=== PATIENT | female | born 1955 | race Caucasian/White ===

== ENCOUNTER → 2017-08-26 | Outpatient (CLI) | payer OTHER | END | disposition home or self-care (01) | LOC: MAMMO 08:51 | DX: Z12.31 Encounter for screening mammogram for malignant neoplasm of breast (principal) | CPT/HCPCS: 77063; 77067 ==

== ENCOUNTER 2017-11-26 10:50 | Emergency (ER) | payer OTHER ==
[2017-11-26 11:28] LABS: ADD MAN DIFF? NO
[2017-11-26 11:36] LABS: BASO % 0 % (0-3); EOS # 0.1 x10^3/uL (0.0-0.7); EOS % 0 % (0-3); HEMATOCRIT 45.8 % (36.0-47.0); HEMOGLOBIN 15.9 g/dL (12.0-15.5); LYMPH # 2.9 x10^3/uL (1.0-4.8); LYMPH % 23 % (24-48); MEAN CORPUSCULAR HEMOGLOBIN 29 pg (25-35); MEAN CORPUSCULAR HGB CONC 35 g/dL (31-37); MEAN CORPUSCULAR VOLUME 84 fL (79-100); MONO # 0.9 x10^3/uL (0.0-1.1); MONO % 7 % (0-9); NEUT # 9.2 x10^3uL (1.8-7.7); NEUT % 70 % (31-73); PLATELET COUNT 294 x10^3/uL (140-400); RED BLOOD COUNT 5.48 x10^6/uL (3.50-5.40); RED CELL DISTRIBUTION WIDTH 13.7 % (11.5-14.5); WHITE BLOOD COUNT 13.1 x10^3/uL (4.0-11.0)
[2017-11-26 11:43] LABS: ANION GAP 11 (6-14); BLOOD UREA NITROGEN 24 mg/dL (7-20); BUN/CREATININE RATIO 22 (6-20); CALCIUM 9.8 mg/dL (8.5-10.1); CARBON DIOXIDE 25 mmol/L (21-32); CHLORIDE 103 mmol/L (98-107); CREATININE 1.1 mg/dL (0.6-1.0); GFR 50.5; GLUCOSE 127 mg/dL (70-99); POTASSIUM 3.6 mmol/L (3.5-5.1); SODIUM 139 mmol/L (136-145)
[2017-11-26 11:46] LABS: BACTERIA,URINE 0 /HPF (0-FEW); BILIRUBIN,URINE NEGATIVE (NEG); CLARITY,URINE CLEAR; COLOR,URINE YELLOW; GLUCOSE,URINE NEGATIVE (NEG); NITRITE,URINE NEGATIVE (NEG); PH,URINE 5.5; PROTEIN,URINE NEGATIVE (NEG-TRACE); RBC,URINE 0 /HPF (0-2); SQUAMOUS EPITHELIAL CELL,UR FEW /LPF; WBC,URINE 0 /HPF (0-4)
[2017-11-26 11:48] LABS: ALBUMIN 4.4 g/dL (3.4-5.0); ALBUMIN/GLOBULIN RATIO 1.1 (1.0-1.7); ALK PHOS 86 U/L (46-116); ALT (SGPT) 34 U/L (14-59); AST (SGOT) 18 U/L (15-37); CREATINE KINASE 57 U/L (26-192); TOTAL BILIRUBIN 0.7 mg/dL (0.2-1.0); TOTAL PROTEIN 8.4 g/dL (6.4-8.2)
[2017-11-26 11:50] LABS: TROPONINI < 0.017 ng/mL (0.000-0.055)
[2017-11-26 11:55] LABS: CKMB MASS 0.6 ng/mL (0.0-3.6); CREATINE KINASE 60 U/L (26-192)
[2017-11-26 11:56] LABS: PARTIAL THROMBOPLASTIN TIME 25 SEC (24-38); PROTHROMBIN TIME PATIENT 12.3 SEC (11.7-14.0)
[2017-11-26] MEDS: GADOBUTROL 7.5 MMOL/7.5 ML VIAL IV (13:38)
== END 2017-11-26 16:39 | disposition home or self-care (01) ==
LOC: ER 10:50
DX: R20.2 Paresthesia of skin (principal); R94.4 Abnormal results of kidney function studies; I10 Essential (primary) hypertension; M06.9 Rheumatoid arthritis, unspecified; R11.0 Nausea
CPT/HCPCS: 36415; 70450; 70553; 71046; 72156; 80053; 81001; 82550; 82553; 83735; 84484; 85025; 85610; 85730; 93005; 96374; 99285; A9585

== ENCOUNTER → 2017-12-04 | Outpatient (CLI) | payer OTHER ==
[2017-12-04 15:54] LABS: BARBITURATES NEG (NEG); BENZODIAZEPINES NEG (NEG); CANNABINOIDS NEG (NEG); COCAINE NEG (NEG); METHADONE NEG (NEG); OPIATES NEG (NEG); PHENCYCLIDINE NEG (NEG)
[2017-12-04 15:55] LABS: AMPHETAMINE/METHAMPHETAMINE NEG (NEG); ETHANOL, URINE NEG (NEG)
[2017-12-04 16:00] LABS: GLUCOSE 109 mg/dL (70-99)
[2017-12-04 16:00] LABS: BLOOD UREA NITROGEN 16 mg/dL (7-20); GFR 56.4
[2017-12-04 16:13] LABS: VITAMIN-B12 327 pg/mL (247-911)
[2017-12-04 16:15] LABS: THYROID STIM HORMONE (TSH) 2.783 uIU/mL (0.358-3.74)
[2017-12-04 16:15] LABS: FREE T4 1.06 ng/dL (0.76-1.46)
[2017-12-04 17:00] LABS: SEDIMENTATION RATE 6 (0-25)
[2017-12-05 03:18] LABS: RHEUMATOID FACTOR <10.0 IU/mL (0.0-13.9)
== END | disposition home or self-care (01) ==
LOC: LAB 15:05
DX: R20.0 Anesthesia of skin (principal)
CPT/HCPCS: 36415; 80307; 82306; 82565; 82607; 82947; 84439; 84443; 84520; 85651; 86038; 86141; 86431

== ENCOUNTER 2017-12-09 13:27 | Outpatient (CLI) | payer OTHER ==
[2017-12-09] MEDS: LIDOCAINE WITH 8.4% SOD BICARB 3 ML DISP.SYRIN. INJ (14:50)
[2017-12-09 16:58] LABS: CSF PROTEIN 93.2 mg/dL (15.0-45.0)
[2017-12-09 16:58] LABS: CSF GLUCOSE 53 mg/dL (37-70)
[2017-12-09 18:20] LABS: CSF CLARITY CLEAR; CSF COLOR COLORLESS; CSF RBC COUNT 0; CSF WBC COUNT 1
[2017-12-12 13:24] LABS: WEST NILE IGG CSF Negative (Negative); WEST NILE IGM CSF Negative (Negative)
[2017-12-12 20:15] LABS: HERPES SIMPLEX TYPE 1 Negative (Negative); HERPES SIMPLEX TYPE 2 Negative (Negative)
[2017-12-17 11:26] LABS: MYELIN BASIC PROTEIN 3.1 ng/mL (0.0-1.2)
[2017-12-19 09:24] LABS: VIRAL CULT FINAL No virus isolated. (.)
== END 2017-12-09 17:15 | disposition home or self-care (01) ==
LOC: RAD 13:27
DX: R20.2 Paresthesia of skin (principal); R20.0 Anesthesia of skin; I10 Essential (primary) hypertension; M06.9 Rheumatoid arthritis, unspecified
CPT/HCPCS: 62270; 82945; 83873; 84157; 86788; 86789; 87071; 87075; 87102; 87205; 87252; 87529; 89051

== ENCOUNTER → 2017-12-15 | Outpatient (CLI) | payer OTHER ==
[2017-12-15 12:31] LABS: BLOOD UREA NITROGEN 11 mg/dL (7-20)
[2017-12-15 12:31] LABS: GFR 56.4
== END | disposition home or self-care (01) ==
LOC: LAB 11:42
DX: R13.12 Dysphagia, oropharyngeal phase (principal); R20.0 Anesthesia of skin
CPT/HCPCS: 82565; 84520

== ENCOUNTER → 2017-12-17 | Outpatient (CLI) | payer OTHER ==
[2017-12-17] MEDS: GADOBUTROL 10 MMOL/10 ML VIAL IV (10:02)
== END | disposition home or self-care (01) ==
LOC: MRI 08:30
DX: M48.061 Spinal stenosis, lumbar region without neurogenic claudication (principal); M12.88 Other specific arthropathies, not elsewhere classified, other specified site; M51.26 Other intervertebral disc displacement, lumbar region; G61.0 Guillain-Barre syndrome
CPT/HCPCS: 72157; 72158; A9585

== ENCOUNTER → 2017-12-18 | Outpatient (CLI) | payer OTHER ==
[2017-12-19 03:15] LABS: C3 COMPLEMENT 147 mg/dL (82-167)
[2017-12-19 03:15] LABS: C4 COMPLEMENT 17 mg/dL (14-44)
[2017-12-22 10:15] LABS: RNP ANTIBODY 0.8 AI (0.0-0.9); SMITH AB <0.2 AI (0.0-0.9); SSA ANTIBODY <0.2 AI (0.0-0.9); SSB ANTIBODY <0.2 AI (0.0-0.9)
== END | disposition home or self-care (01) ==
LOC: LAB 13:36
DX: R76.8 Other specified abnormal immunological findings in serum (principal)
CPT/HCPCS: 36415; 86160; 86235

== ENCOUNTER → 2018-02-06 | Outpatient (CLI) | payer OTHER ==
[2018-02-06 12:17] LABS: ALBUMIN 4.2 g/dL (3.4-5.0); ALBUMIN/GLOBULIN RATIO 1.2 (1.0-1.7); ALK PHOS 83 U/L (46-116); ALT (SGPT) 30 U/L (14-59); ANION GAP 9 (6-14); AST (SGOT) 17 U/L (15-37); BLOOD UREA NITROGEN 15 mg/dL (7-20); BUN/CREATININE RATIO 15 (6-20); CALCIUM 9.6 mg/dL (8.5-10.1); CARBON DIOXIDE 27 mmol/L (21-32); CHLORIDE 105 mmol/L (98-107); CHOLESTEROL 163 mg/dL (0-200); CHOLESTEROL/HDL RATIO 2.7; GFR 56.4; GLUCOSE 93 mg/dL (70-99); HDLC 61 mg/dL (40-60); LDLC 89 mg/dL (0-100); NON-HDL CHOLESTEROL 102 mg/dL (0-129); POTASSIUM 4.1 mmol/L (3.5-5.1); SODIUM 141 mmol/L (136-145); TOTAL BILIRUBIN 0.4 mg/dL (0.2-1.0); TOTAL PROTEIN 7.7 g/dL (6.4-8.2); TRIGLYCERIDES 66 mg/dL (0-150); VLDLC 13 mg/dL (0-40)
== END | disposition home or self-care (01) ==
LOC: LAB 11:29
DX: Z01.411 Encounter for gynecological examination (general) (routine) with abnormal findings (principal); E55.9 Vitamin D deficiency, unspecified; I10 Essential (primary) hypertension
CPT/HCPCS: 36415; 80053; 80061

== ENCOUNTER → 2018-02-06 | Outpatient (CLI) | payer OTHER ==
[2018-02-06 11:44] LABS: ADD MAN DIFF? NO
[2018-02-06 11:59] LABS: BASO % 0 % (0-3); EOS # 0.1 x10^3/uL (0.0-0.7); EOS % 1 % (0-3); HEMATOCRIT 41.3 % (36.0-47.0); HEMOGLOBIN 14.2 g/dL (12.0-15.5); LYMPH # 2.2 x10^3/uL (1.0-4.8); LYMPH % 29 % (24-48); MEAN CORPUSCULAR HEMOGLOBIN 29 pg (25-35); MEAN CORPUSCULAR HGB CONC 34 g/dL (31-37); MEAN CORPUSCULAR VOLUME 85 fL (79-100); MONO # 0.4 x10^3/uL (0.0-1.1); MONO % 6 % (0-9); NEUT # 4.9 x10^3uL (1.8-7.7); NEUT % 64 % (31-73); PLATELET COUNT 248 x10^3/uL (140-400); RED BLOOD COUNT 4.87 x10^6/uL (3.50-5.40); RED CELL DISTRIBUTION WIDTH 13.3 % (11.5-14.5); WHITE BLOOD COUNT 7.6 x10^3/uL (4.0-11.0)
[2018-02-06 12:14] LABS: CREATINE KINASE 54 U/L (26-192)
[2018-02-06 19:20] LABS: RHEUMATOID FACTOR <10.0 IU/mL (0.0-13.9)
== END | disposition home or self-care (01) ==
LOC: LAB 11:22
DX: E55.9 Vitamin D deficiency, unspecified (principal); M06.031 Rheumatoid arthritis without rheumatoid factor, right wrist; M06.032 Rheumatoid arthritis without rheumatoid factor, left wrist; I10 Essential (primary) hypertension
CPT/HCPCS: 36415; 82306; 82550; 85025; 86431

== ENCOUNTER → 2018-08-26 | Outpatient (CLI) | payer OTHER ==
[2017-12-09 17:15] VITALS: BP 140/73
[2018-08-26 06:57] LABS: ALBUMIN 3.9 g/dL (3.4-5.0); C-REACTIVE PROTEIN 12.7 mg/L (0-3.3); CALCIUM 9.3 mg/dL (8.5-10.1); CREATININE 1.1 mg/dL (0.6-1.0); GFR 50.3; POTASSIUM 3.8 mmol/L (3.5-5.1); TOTAL BILIRUBIN 0.5 mg/dL (0.2-1.0); TOTAL PROTEIN 7.8 g/dL (6.4-8.2)
== END | disposition home or self-care (01) ==
LOC: LAB 06:18
PROVIDERS: ATTEND Psychiatry & Neurology Neurology
DX: R20.0 Anesthesia of skin (principal)
CPT/HCPCS: 36415; 80053; 84591; 86140

== ENCOUNTER → 2018-10-29 | Outpatient (CLI) | payer OTHER ==
[2017-12-09 17:15] VITALS: BP 140/73
--- NOTE | 2018-10-29 14:25 | RAD ---
DATE: 10/29/2018 EXAM: MAMMO MARBELLA SCREENING BILATERAL HISTORY: Routine screening COMPARISON: 08/26/2017 This study was interpreted with the benefit of Computerized Aided Detection (CAD). Breast Density: SCATTERED The breast parenchyma shows scattered fibroglandular densities. Breast parenchyma level B. FINDINGS: 2-D and 3-D tomosynthesis imaging was performed in CC and MLO projections. No new or enlarging breast densities are seen. Benign type calcification is present. No suspicious microcalcifications have developed. IMPRESSION: Stable mammograms without evidence of malignancy. BI-RADS CATEGORY: 2 BENIGN FINDING(S) RECOMMENDED FOLLOW-UP: 12M 12 MONTH FOLLOW-UP PQRS compliance statement: Patient information was entered into a reminder system with a target due date for the next mammogram. Mammography is a sensitive method for finding small breast cancers, but it does not detect them all and is not a substitute for careful clinical examination. A negative mammogram does not negate a clinically suspicious finding and should not result in delay in biopsying a clinically suspicious abnormality. "Our facility is accredited by the [employer] Mammography Program."
== END | disposition home or self-care (01) ==
LOC: MAMMO 12:10
PROVIDERS: ATTEND Family Medicine
DX: Z12.31 Encounter for screening mammogram for malignant neoplasm of breast (principal)
CPT/HCPCS: 77063; 77067

== ENCOUNTER → 2018-12-14 | Outpatient (CLI) | payer OTHER ==
[2017-12-09 17:15] VITALS: BP 140/73
[2018-12-17 19:15] LABS: ANA INTERP Positive (.)
== END | disposition home or self-care (01) ==
LOC: LAB 15:34
PROVIDERS: ATTEND Psychiatry & Neurology Neurology
DX: R20.0 Anesthesia of skin (principal)
CPT/HCPCS: 36415; 86038

== ENCOUNTER → 2020-08-31 | Outpatient (CLI) | payer OTHER ==
[2017-12-09 17:15] VITALS: BP 140/73
== END ==
LOC: LAB 11:46
PROVIDERS: ATTEND Internal Medicine Pulmonary Disease
DX: U07.1 COVID-19 (principal)
CPT/HCPCS: U0003

== ENCOUNTER 2020-09-05 19:11 | Emergency (ER) | payer OTHER ==
[~2020-09-05] VITALS: Ht 167.6 cm; Wt 85.0 kg
--- NOTE | 2020-09-05 19:48 | PHYS DOC ---
Past Medical History Past Medical History: Hypertension, Other Additional Past Medical Histor: RA Past Surgical History: Other Additional Past Surgical Histo: d&c Smoking Status: Never Smoker Alcohol Use: Occasionally Drug Use: None General Adult EDM: Chief Complaint: NAUSEA/VOMITING/DIARRHA HPI: HPI: 65-year-old female with significant history of HTN, RA, who presents for evaluation of intractable nausea and fatigue in the setting of recent positive COVID-19 test 5 days ago. Has been symptomatic for 7 days. She reports objective fevers, chills, fatigue, and intractable nausea without abdominal pain. No other GI or complaints. No chest pain or dyspnea. No aggravating or alleviating factors. Review of Systems: Review of Systems: Gen: Reports subjective fever, chills, fatigue. Eyes: No blurred vision, diplopia. ENT: No nasal congestion, sore throat. CV: No CP, palpitations. Resp. No SOB, cough. GI: No abd pain. Reports N/V. : No dysuria, hematuria. Neuro: No BANERJEE, dizziness. Reports mild generalized weakness. MSK: No myalgia, arthralgia, back pain. Skin: No acute rash or lesion. Remainder of systems reviewed and negative unless otherwise specified. Heart Score: Risk Factors: Risk Factors: DM, Current or recent (<one month) smoker, HTN, HLP, family history of CAD, obesity. Risk Scores: Score 0 - 3: 2.5% MACE over next 6 weeks - Discharge Home Score 4 - 6: 20.3% MACE over next 6 weeks - Admit for Clinical Observation Score 7 - 10: 72.7% MACE over next 6 weeks - Early Invasive Strategies Allergies: Allergies: Allergies Coded Allergies Type Severity Reaction Last Updated Verified lisinopril Allergy Severe 11/21/14 Yes Physical Exam: PE: Gen: NAD. Head: NC/AT. Eyes: No scleral icterus. No conjunctival injection. PERRL. ENT: MMM. Posterior OP clear. Neck: Supple. CV: RRR. Peripheral pulses intact. Resp: CTAB. Abd: Soft. NT. ND. No flank percussion tenderness. MSK: No peripheral cyanosis. No edema. Neuro: A&Ox3. Strength & sensation grossly intact throughout. Skin. Warm. Dry. Psych: Appropriate mood & affect. Current Patient Data: Labs: Laboratory Tests Test 09/05/20 20:20 White Blood Count 11.9 x10^3/uL (4.0-11.0) Red Blood Count 5.05 x10^6/uL (3.50-5.40) Hemoglobin 14.0 g/dL (12.0-15.5) Hematocrit 41.7 % (36.0-47.0) Mean Corpuscular Volume 83 fL (79-100) Mean Corpuscular Hemoglobin 28 pg (25-35) Mean Corpuscular Hemoglobin Concent 34 g/dL (31-37) Red Cell Distribution Width 13.2 % (11.5-14.5) Platelet Count 306 x10^3/uL (140-400) Neutrophils (%) (Auto) 88 % (31-73) Lymphocytes (%) (Auto) 7 % (24-48) Monocytes (%) (Auto) 6 % (0-9) Eosinophils (%) (Auto) 0 % (0-3) Basophils (%) (Auto) 0 % (0-3) Neutrophils # (Auto) 10.5 x10^3/uL (1.8-7.7) Lymphocytes # (Auto) 0.8 x10^3/uL (1.0-4.8) Monocytes # (Auto) 0.7 x10^3/uL (0.0-1.1) Eosinophils # (Auto) 0.0 x10^3/uL (0.0-0.7) Basophils # (Auto) 0.0 x10^3/uL (0.0-0.2) Segmented Neutrophils % 84 % (35-66) Band Neutrophils % 4 % (0-9) Lymphocytes % 7 % (24-48) Monocytes % 5 % (0-10) Platelet Estimate Adequate (ADEQUATE) Sodium Level 135 mmol/L (136-145) Chloride Level 99 mmol/L (98-107) Carbon Dioxide Level 26 mmol/L (21-32) Anion Gap 10 (6-14) Blood Urea Nitrogen 13 mg/dL (7-20) Estimated GFR (Cockcroft-Gault) 72.2 BUN/Creatinine Ratio 16 (6-20) Glucose Level 121 mg/dL (70-99) Calcium Level 8.6 mg/dL (8.5-10.1) Total Bilirubin 0.5 mg/dL (0.2-1.0) Aspartate Amino Transf (AST/SGOT) 49 U/L (15-37) Alkaline Phosphatase 100 U/L (46-116) Total Protein 7.6 g/dL (6.4-8.2) Albumin 3.0 g/dL (3.4-5.0) Albumin/Globulin Ratio 0.7 (1.0-1.7) Lipase 104 U/L (73-393) EKG: EKG: [] Radiology/Procedures: Radiology/Procedures: PORTABLE CHEST 1V INDICATION: Reason: SOA / Spl. Instructions: / History: COMPARISON: November 26, 2017 FINDINGS: Single view of chest obtained. Cardiac silhouette is similar prior given difference in technique. Mild interstitial opacities bilaterally with more focal component at the left mid to lower lung. Degenerative changes of the spine. IMPRESSION: * Mild interstitial opacities bilaterally with more focal nodular component in the left mid to lower lung. Could be secondary to causes such as interstitial and nodular infiltrate. Given the interstitial component superimposed mild pulmonary vascular congestion not excluded. Electronically signed by: Nathan Sampson MD (09/05/2020 8:09 PM) [id number] Course & Med Decision Making: Course & Med Decision Making Pertinent Labs and Imaging studies reviewed. (See chart for details) In summary, 65-year-old female who recently tested positive for COVID-19 who presents for evaluation of nausea without abdominal pain, associated with fatigue but minimal URI symptoms. No chest pain or dyspnea. Hemodynamically stable. Pulse oximetry is 96% on room air without increased work of breathing. Patient's lab work is otherwise unrevealing. No significant evidence of severe dehydration or gross electrolyte derangement. Chest x-ray with left greater than right patchy infiltrates. Will be discharged home with symptomatic treatment. Outpatient follow-up. Return precautions given. Dragon Disclaimer: Dragon Disclaimer: This electronic medical record was generated, in whole or in part, using a voice recognition dictation system. Departure Departure Impression: Primary Impression: COVID-19 Additional Impression: Nausea Disposition: 01 DC HOME SELF CARE/HOMELESS Condition: STABLE Referrals: MELANIA MCDANIEL MD (PCP) Patient Instructions: Viral Syndrome Scripts Doxycycline Hyclate (DOXYCYCLINE HYCLATE) 100 Mg Capsule 1 CAP PO BID, #14 CAP Prov: OLIVIA BRICE DO 09/05/20 Prednisone (PREDNISONE) 20 Mg Tablet 1 TAB PO DAILY, #5 TAB Prov: LE,OLIVIA H DO 09/05/20 Ondansetron (ONDANSETRON ODT) 4 Mg Tab.rapdis 1 TAB PO PRN Q6-8HRS, #16 TAB Prov: LE,OLIVIA H DO 09/05/20 LE,OLIVIA H DO Sep 05, 2020 19:48
[2020-09-05] MEDS ORDERED: ONDANSETRON PF 4 MG/2 ML VIAL. IVP ONE (20:00)
[2020-09-05] MEDS ORDERED: FAMOTIDINE 20 MG/2 ML VIAL IVP ONE (20:00)
[2020-09-05] MEDS ORDERED: IV NORMAL SALINE 1000ML BAG 1,000 ML IV ONE (20:00)
--- NOTE | 2020-09-05 20:11 | RAD ---
INDICATION: Reason: SOA / Spl. Instructions: / History: COMPARISON: November 26, 2017 FINDINGS: Single view of chest obtained. Cardiac silhouette is similar prior given difference in technique. Mild interstitial opacities bilate rally with more focal component at the left mid to lower lung. Degenerative changes of the spine. IMPRESSION: * Mild interstitial opacities bilaterally with more focal nodular component in the left mid to lower lung. Could be secondary to causes such as interstitial and nodular infiltrate. Given the interstiti al component superimposed mild pulmonary vascular congestion not excluded. Electronically signed by: Nathan Sampson MD (09/05/2020 8:09 PM) [id number]
[2020-09-05 20:28] LABS: BASO % 0 % (0-3); EOS % 0 % (0-3); HEMATOCRIT 41.7 % (36.0-47.0); LYMPH # 0.8 x10^3/uL (1.0-4.8); LYMPH % 7 % (24-48); MEAN CORPUSCULAR HEMOGLOBIN 28 pg (25-35); MEAN CORPUSCULAR HGB CONC 34 g/dL (31-37); MEAN CORPUSCULAR VOLUME 83 fL (79-100); MONO # 0.7 x10^3/uL (0.0-1.1); MONO % 6 % (0-9); NEUT # 10.5 x10^3/uL (1.8-7.7); NEUT % 88 % (31-73); PLATELET COUNT 306 x10^3/uL (140-400); RED BLOOD COUNT 5.05 x10^6/uL (3.50-5.40); RED CELL DISTRIBUTION WIDTH 13.2 % (11.5-14.5); WHITE BLOOD COUNT 11.9 x10^3/uL (4.0-11.0)
[2020-09-05 20:38] LABS: CALCIUM 8.6 mg/dL (8.5-10.1); CREATININE 0.8 mg/dL (0.6-1.0); GFR 72.2; POTASSIUM 3.8 mmol/L (3.5-5.1)
[2020-09-05 20:41] LABS: ALBUMIN/GLOBULIN RATIO 0.7 (1.0-1.7); TOTAL BILIRUBIN 0.5 mg/dL (0.2-1.0); TOTAL PROTEIN 7.6 g/dL (6.4-8.2)
[2020-09-05 20:47] LABS: % BANDS 4 % (0-9); % LYMPHS 7 % (24-48); % MONOS 5 % (0-10); % SEGS 84 % (35-66); PLT ESTIMATE ADEQUATE (ADEQUATE)
[2020-09-05] MEDS ORDERED: METOCLOPRAMIDE HCL 10 MG/2 ML VIAL. IVP ONE (21:00)
[2020-09-05] MEDS ORDERED: diphenhydrAMINE 50 MG/ML VIAL IVP ONE (21:00)
[2020-09-05] MEDS ORDERED: DEXAMETHASONE SOD PHOS 4 MG/ML VIAL IVP ONE (21:00)
[2020-09-05] MEDS ORDERED: DOXY100C2 PO (21:33)
[2020-09-05] MEDS ORDERED: PRED20TA PO (21:33)
[2020-09-05] MEDS ORDERED: ONDA4TAB12 PO (21:33)
[2020-09-05 21:40] VITALS: BP 124/64
== END 2020-09-05 21:48 | disposition home or self-care (01) ==
LOC: ER 19:11
DX: U07.1 COVID-19 (principal); R11.0 Nausea; R50.9 Fever, unspecified; R53.83 Other fatigue; I10 Essential (primary) hypertension; Z98.890 Other specified postprocedural states; Z88.8 Allergy status to other drugs, medicaments and biological substances
CPT/HCPCS: 36415; 71045; 80053; 83690; 83735; 85007; 85025; 96361; 96374; 96375; 99285; J1100; J1200; J2405; J2765; J3490; J7030